=== PATIENT | female | born 1955 | race Caucasian/White ===

== ENCOUNTER 2025-07-21 10:55 | Outpatient (CLI) | payer OTHER ==
--- NOTE | 2025-07-21 13:58 | RADIOLOGY REPORT ---
CLINICAL INDICATION: OTH TEAR OF LAT MENSC, CURRENT INJURY, UNSP KNEE, INIT TECHNIQUE: Multiplanar, multisequence MRI of the left knee was performed without contrast. Contrast: None. COMPARISON: None FINDINGS: Joint space and synovium: There is no joint effusion. There is a small saenz's cyst. No synovitis. Bones and articular cartilage: There is no evidence of acute fracture or bone marrow edema. The alignment is normal. Focal chondral thinning in the medial patellar facet. The articular cartilage in the lateral tibiofemoral compartment is intact. There is chondral thinning in the posterior medial femoral condyle without full-thickness chondral defect. There are medial compartment osteophytes. Menisci: There is a complex tear of the posterior horn and body of the medial meniscus. The lateral meniscus is intact. Tendons and ligaments: The tendons in the posterior knee are intact. The extensor mechanism is intact. The anterior cruciate ligament is intact. The posterior cruciate ligament is intact. The medial collateral ligament and the lateral collateral ligament stabilizing complex are intact. Muscles: Regional muscles are preserved in bulk and signal characteristics. Other: None. IMPRESSION: 1. Complex tear of the posterior horn and body of the medial meniscus of the left knee. 2. Mild medial compartment osteoarthritis. 3. Small Saenz's cyst. 4. Chondromalacia patella.
== END 2025-07-21 23:59 | disposition home or self-care (01) ==
LOC: MRI02 10:55
PROVIDERS: ATTEND Family Medicine
DX: S83.242A Other tear of medial meniscus, current injury, left knee, initial encounter (principal); S83.289A Other tear of lateral meniscus, current injury, unspecified knee, initial encounter; M17.12 Unilateral primary osteoarthritis, left knee; M71.22 Synovial cyst of popliteal space [Baker], left knee; M22.42 Chondromalacia patellae, left knee; M25.762 Osteophyte, left knee; X58.XXXA Exposure to other specified factors, initial encounter; Y93.89 Activity, other specified; Y92.89 Other specified places as the place of occurrence of the external cause; Y99.8 Other external cause status
CPT/HCPCS: 73721